=== PATIENT | male | born 1995 | race Two or more races ===

== ENCOUNTER 2021-01-06 22:35 | Observation (INO) ==
[2021-01-06] MEDS ORDERED: SODIUM CHLORIDE 0.9% 1000ML 1,000 ML IV STA (22:55)
[2021-01-06] MEDS ORDERED: ACETAMINOPHEN 1,000 MG/100 ML VIAL IV STA (22:56)
--- NOTE | 2021-01-06 23:01 | Emergency Department Note ---
History of Present Illness General Chief complaint: Abdominal Pain Stated complaint: ABDOMINAL PAIN Time Seen by Provider: 01/06/21 22:46 History of Present Illness Maximum Pain Intensity: 6 This 25-year-old presents to the ER complaining of abdominal pain Location: Right lower quadrant Quality: Painful Severity: Moderate Duration: Today Timing: Today Context: Patient was concerned and came in Modifying factors: better with rest; worse with palpation Patient denies chest pain, dyspnea, vomiting, diarrhea, urinary symptoms, testicular pain or penile pain. No prior abdominal surgeries. Home Medications Medication Instructions Recorded Confirmed Type ascorbic acid (vitamin C) 500 mg 500 mg PO DAILY 01/07/21 01/07/21 History tablet (Vitamin C) simethicone 80 mg chewable tablet 160 mg PO BID PRN 01/07/21 01/07/21 History Allergies Allergy/AdvReac Type Severity Reaction Status Date / Time DIPIRONE Allergy Anaphylaxis Uncoded 01/07/21 00:13 Past Med/Surg History Medical History No acute medical problems Surgical History S/P genital surgery Social History Smoking Status: Never smoker Preferred Language: Citizen Of [place] Feels Safe at Home: Yes Review of Systems A total of 10 systems reviewed and were otherwise negative Physical Exam Vital Signs Vital Signs - 24 hr 01/06/21 22:36 01/06/21 23:09 01/06/21 23:58 Temperature 36.9 C Temperature Source Temporal Artery Scan Pulse Rate 72 Pulse Rate [Right Finger] 84 Pulse Rhythm Regular Pulse Strength Normal Respiratory Rate 20 20 Respiratory Pattern Regular Blood Pressure 136/76 Blood Pressure [Right Arm] 144/85 H Blood Pressure Mean 96 Blood Pressure Mean [Right Arm] 104 Blood Pressure Position Sitting Pulse Oximetry 100 98 100 Oxygen Delivery Method Room Air Room Air Room Air Sepsis Recent Fever Within 48 Hours No Sepsis New/Unexplained Change in Mental Status No Sepsis Action Taken by Nursing No Action Required 01/07/21 01:36 Temperature Temperature Source Pulse Rate Pulse Rate [Right Finger] 78 Pulse Rhythm Pulse Strength Respiratory Rate 20 Respiratory Pattern Blood Pressure Blood Pressure [Right Arm] 136/85 Blood Pressure Mean Blood Pressure Mean [Right Arm] 102 Blood Pressure Position Pulse Oximetry 98 Oxygen Delivery Method Sepsis Recent Fever Within 48 Hours Sepsis New/Unexplained Change in Mental Status Sepsis Action Taken by Nursing VITALS: Vitals are noted on the nurse's note and reviewed by myself. Vital signs stable. GENERAL: Pleasant gentleman, in no acute distress, nondiaphoretic, well- developed well-nourished. SKIN: Capillary reflex less than 2 seconds. HEENT: Normocephalic. PERRLA. EOMI. Nares patent. Mucous membranes moist. Neck is supple without nuchal rigidity. HEART: Regular rate and rhythm without murmurs gallops or rubs. LUNGS: Clear to auscultation bilaterally without wheezes, rales or rhonchi. No retractions or accessory muscle use. ABDOMEN: Positive bowel sounds x 4. Normal tympanic percussion. Soft, tender to palpation right lower quadrant, without masses or organomegaly. Saucedo sign negative. No guarding or rebound tenderness. No CVA tenderness MUSCULOSKELETAL: No gross musculoskeletal defects. NEURO: Patient was alert and oriented to person place and time. No focal neurological deficits. Course Administered Medications Discontinued Medications Sodium Chloride (Nss 1000ml) 1,000 mls @ 999 mls/hr IV .Q1H1M STA Stop: 01/06/21 23:55 Last Infusion: 01/07/21 00:10 Dose: 0 mls/hr Documented by: [id number] Admin: 01/06/21 23:10 Dose: 999 mls/hr Documented by: [id number] Acetaminophen (Ofirmev) 1,000 mg in 100 mls @ 400 mls/hr IV NOW STA Stop: 01/06/21 23:10 Last Infusion: 01/06/21 23:28 Dose: 0 mls/hr Documented by: [id number] Admin: 01/06/21 23:10 Dose: 400 mls/hr Documented by: [id number] Cefoxitin Sodium (Mefoxin) 2,000 mg in 60 mls @ 100 mls/hr IV NOW STA Stop: 01/07/21 01:22 Last Infusion: 01/07/21 01:32 Dose: 0 mls/hr Documented by: [id number] Admin: 01/07/21 00:56 Dose: 100 mls/hr Documented by: [id number] Ioversol (Optiray 320 100ml) 100 ml IV ONCE ONE Stop: 01/07/21 00:12 Last Admin: 01/07/21 00:11 Dose: 94 ml Documented by: [id number] Morphine Sulfate (Morphine Sulfate 4 Mg/Ml 1 Ml Carp\Vial) 4 mg IV NOW STA Stop: 01/06/21 23:12 Last Admin: 01/06/21 23:14 Dose: 4 mg Documented by: [id number] Morphine Sulfate (Morphine Sulfate 4 Mg/Ml 1 Ml Carp\Vial) 4 mg IV NOW STA Stop: 01/07/21 00:28 Last Admin: 01/07/21 00:32 Dose: 4 mg Documented by: [id number] Medical Decision Making Medical Records Attestation: I reviewed the patient's medical records. Home Medications Current Medication List: was personally reviewed by me Laboratory Data Attestation: I reviewed the patient's lab results. Result diagrams: 01/06/21 23:08 01/06/21 23:08 Lab Results 01/06/21 01/06/21 01/07/21 Range/Units 23:08 23:08 00:55 WBC 11.51 H (4.8-10.8) K/uL RBC 5.23 (4.7-6.1) M/uL Hgb 14.9 (14.0-18.0) g/dL Hct 44.8 (42-52) % MCV 85.7 (80-100) fL MCH 28.5 (25-34) pg MCHC 33.3 (32-36) g/dL RDW Std Deviation 45.2 (36.4-46.3) fL RDW Coeff of Ryder 14.6 H (11.5-14.5) % Plt Count 170 (130-400) K/uL MPV 12.6 H (7.4-10.4) fL Immature Gran % (Auto) 0.3 % Neut % (Auto) 70.3 % Lymph % (Auto) 20.2 % [place] % (Auto) 7.3 % Eos % (Auto) 1.7 % Baso % (Auto) 0.2 % Neut # (Auto) 8.10 H (1.4-6.5) K/uL Lymph # (Auto) 2.32 (1.2-3.4) K/uL [place] # (Auto) 0.84 H (0.11-0.59) K/uL Eos # (Auto) 0.20 (0-0.5) K/uL Baso # (Auto) 0.02 (0-0.2) K/uL Immature Gran # (Auto) 0.03 H (0.00-0.02) K/uL Sodium 136 (136-145) mmol/L Potassium 3.3 L (3.5-5.1) mmol/L Chloride 103 (98-107) mmol/L Carbon Dioxide 26 (21-32) mmol/L Anion Gap 8.0 (3-11) BUN 17 (7-18) mg/dl Creatinine 0.96 (0.6-1.4) mg/dl Est Cr Clr Drug Dosing 117.3 ml/min Est GFR ( Amer) 126.8 ml/min Est GFR (Non-Af Amer) 109.4 ml/min BUN/Creatinine Ratio 18.0 (10-20) Glucose 124 H (70-99) mg/dl Calcium 9.3 (8.5-10.1) mg/dl Total Bilirubin 0.3 (0.2-1) mg/dl AST 24 (15-37) U/L ALT 22 (12-78) U/L Alkaline Phosphatase 66 (45-117) U/L Total Protein 8.1 (6.4-8.2) gm/dl Albumin 4.1 (3.4-5.0) gm/dl Globulin 4.0 (2.5-4.0) gm/dl Albumin/Globulin Ratio 1.0 (0.9-2) COVID-19 Eval Order Covid19 at [facility] Imaging Data Attestation: I personally reviewed and interpreted this imaging study as follows: MDM Narrative Prior records/ancillary studies reviewed. Triage Nursing notes reviewed. Additional history obtained from nursing. The patient's history was concerning for abdominal pain. Differential diagnosis: Etiologies such as appendicitis, diverticulitis, PUD, biliary pathology, UTI, pancreatitis, obstruction, mesenteric ischemia, aortic pathology, infections, inflammatory bowel disease, renal colic, as well as others were entertained. Physical examination findings: As above. ER treatment provided: An order was placed for continuous cardiac monitoring. The monitor shows a rate of 60-100 with a sinus rhythm. IV fluids, Tylenol, morphine, mefoxin On reassessment the patient felt better. Diagnostics interpreted by me: The labs revealed mild leukocytosis Imaging studies: CT ABDOMEN & PELVIS With Contrast: No previous studyfor comparison. Liver spleen and pancreas and gallbladder appear normal. There is an appendicolith in the proximal appendix in the distal appendix is mildlydistended measuring 15 mm. There is no appendiceal wall thickening or keron surrounding inflammatorychange. There is a solitaryleft kidneywithout hydronephrosis renal mass or stone. Bladder and prostate appear normal. Vascular structures appear normal. Impression: Earlyor mild appendicitis Radiologist: Garcia Arora MD Consultation: A consultation was placed with the GS, Dr Jaramillo. The case was discussed and diagnostics were reviewed. The patient was evaluated in the ER for further treatment. Exam and history seem consistent with acute appendicitis. Patient last ate at 6 PM. Surgery was consulted. He will be evaluated by surgery. Patient was placed on antibiotics. He was n.p.o. By the evaluation outlined above emergent etiologies such as diverticulitis, PUD, biliary pathology, UTI, pancreatitis, obstruction, mesenteric ischemia, aortic pathology, inflammatory bowel disease, renal colic, as well as others were deemed relatively unlikely. The pt informed about the findings as listed above. All questions were answered and pleased with the treatment. The chart was completed utilizing [employer] Speech voice recognition software. Grammatical errors, random word insertions, pronoun errors, and incomplete sentences are an occassional consequence of this system due to software limitations, ambient noise, and hardware issues. Any formal questions or concerns about the content, text, or information contained within the body of this dictation should be directly addressed to the physician assistant product manager for clarification. Impression & Plan Acute appendicitis Discharge Plan Visit Data Chief Complaint: Abdominal Pain Stated Complaint: ABDOMINAL PAIN ED Provider: Rashaad Griffin ED Midlevel Provider: Ngozi Jones Discharge Problem: Acute appendicitis Patient Disposition: Being Evaluated by Surgeon Condition: Good Forms Stand Alone Forms: [employer] Prescriptions Prescriptions: No Action ascorbic acid (vitamin C) [Vitamin C] 500 mg Tablet 500 mg PO DAILY RF: 0 simethicone [Gas-X] 80 mg Tablet,Chewable 160 mg PO BID PRN (Reason: gas /bloating) RF: 0 Referrals Referrals: PCP,NO [Physician] - Discharge Problem: Acute appendicitis Qualifiers: Acute appendicitis type: with localized peritonitis Appendicitis gangrene presence: unspecified whether gangrene present Appendicitis perforation presence: without perforation Appendicitis abscess presence: without abscess Qualified Code(s): K35.30 - Acute appendicitis with localized peritonitis, without perforation or gangrene
[2021-01-06] MEDS ORDERED: MoRPHine SULFATE 4 MG/ML 1 ML CARP\\VIAL IV STA (23:11)
[2021-01-06 23:18] LABS: Basophils # (auto) 0.02 K/uL (0-0.2); Basophils % (auto) 0.2 %; Eosinophils % (auto) 1.7 %; Hematocrit (blood only) 44.8 % (42-52); Hemoglobin 14.9 g/dL (14.0-18.0); Immature Granulocytes # (auto) 0.03 K/uL (0.00-0.02); Immature Granulocytes % (auto) 0.3 %; Lymphocytes # (auto) 2.32 K/uL (1.2-3.4); Lymphocytes % (auto) 20.2 %; Mean Corpuscular Hemoglobin 28.5 pg (25-34); Mean Corpuscular Hgb Conc 33.3 g/dL (32-36); Mean Corpuscular Volume 85.7 fL (80-100); Mean Platelet Volume 12.6 fL (7.4-10.4); Monocytes # (auto) 0.84 K/uL (0.11-0.59); Monocytes % (auto) 7.3 %; Neutrophils % (auto) 70.3 %; Platelet Count 170 K/uL (130-400); RDW Coefficient of Variation 14.6 % (11.5-14.5); RDW Standard Deviation 45.2 fL (36.4-46.3); Red Blood Count 5.23 M/uL (4.7-6.1); White Blood Count 11.51 K/uL (4.8-10.8)
[2021-01-06 23:39] LABS: Albumin Level 4.1 gm/dl (3.4-5.0); Calcium 9.3 mg/dl (8.5-10.1); Creatinine Clr Calc Pharmacy 117.3 ml/min; Est GFR (African American) 126.8 ml/min; Est GFR (Non-African American) 109.4 ml/min; Potassium 3.3 mmol/L (3.5-5.1)
[2021-01-06 23:42] LABS: Bilirubin,Total 0.3 mg/dl (0.2-1); Total Protein 8.1 gm/dl (6.4-8.2)
[2021-01-07] MEDS ORDERED: OPTIRAY 320 100ml IV ONE (00:11)
[2021-01-07] MEDS ORDERED: MoRPHine SULFATE 4 MG/ML 1 ML CARP\\VIAL IV STA (00:27)
[2021-01-07] MEDS ORDERED: cefOXitin 2,000 MG/60 ML BAG IV STA (00:47)
--- NOTE | 2021-01-07 01:52 | Surgery Consultation ---
Date of Consultation January 07, 2021 Assessment & Plan (1) Acute appendicitis: pt is a 25 year-old male who presents to Er with acute abdominal pain, IMP: acute abdominal pain, acute appendicitis, plan, I recommend to do laparoscopic appendectomy, possible open, D/W benefits, risks and alternatives of the surgery, the risks- infection, bleeding, abscess, remain fecalith, may need more procedure, injury other organs, negative for appendicitis, but still need to do appendectomy, pt understood, he agrees with the surgery, I answered all questions, pre-op antibiotic, History of Present Illness Reason for Consultation: acute appendicitis Requesting Physician: yissel maurice PA History of Present Illness CC: acute abdominal pain HPI: pt is a 25 year-old male who presents to ER with 7 hours acute RLQ pain with nausea and vomiting, the pain is 6/10, sharp pain, the pain is getting worse last 2 hours, pt denies diarrhea, no fever,otherwise pt is healthy, pt had Ct scan at Er, diagnosis- early appendicitis, Allergies Allergy/AdvReac Type Severity Reaction Status Date / Time DIPIRONE Allergy Anaphylaxis Uncoded 01/07/21 00:13 Home Medications Medication Instructions Recorded Confirmed Type ascorbic acid (vitamin C) 500 mg 500 mg PO DAILY 01/07/21 01/07/21 History tablet (Vitamin C) simethicone 80 mg chewable tablet 160 mg PO BID PRN 01/07/21 01/07/21 History Patient History Medical History No acute medical problems Surgical History S/P genital surgery Social History Smoking Status: Never smoker Preferred Language: Maltese Feels Safe at Home: Yes Review of Systems Constitutional: as per Subjective / HPI Eyes: as per Subjective / HPI Respiratory: as per Subjective / HPI Cardiovascular: as per Subjective / HPI Gastrointestinal: as per Subjective / HPI Genitourinary: + as per Subjective / HPI Neurologic: as per Subjective / HPI Psychiatric: as per Subjective / HPI Endocrine: as per Subjective / HPI Hematologic / Lymphatic: as per Subjective / HPI Physical Exam Constitutional: WD/WN, vitals as above Eyes: PERRL, conjunctivae normal, anicteric sclerae Neck: trachea midline, no thyromegaly Respiratory: normal respiratory effort, lungs clear to auscultation Cardiovascular: RRR, no murmur, no edema Gastrointestinal (Abdomen): soft, tenderness at RLQ, no rebound pain, no distend, BS +, Musculoskeletal: no cyanosis or clubbing, extremities motor strength 5/5 Neurologic: patellar DTR's 2+ bilat, sensation intact Psychiatric: A+Ox3, euthymic affect Results & [facility] ([facility]) Vital Signs (Past 12 Hours) Vital Signs Temp Pulse Pulse Resp BP BP Pulse Ox 01/07/21 01:36 78 20 136/85 98 01/06/21 23:58 84 20 144/85 H 100 01/06/21 23:09 98 01/06/21 22:36 36.9 C 72 20 136/76 100 Laboratory Results Abnormal lab results 01/06/21 01/06/21 Range/Units 23:08 23:08 WBC 11.51 H (4.8-10.8) K/uL RDW Coeff of Ryder 14.6 H (11.5-14.5) % MPV 12.6 H (7.4-10.4) fL Neut # (Auto) 8.10 H (1.4-6.5) K/uL [place] # (Auto) 0.84 H (0.11-0.59) K/uL Immature Gran # (Auto) 0.03 H (0.00-0.02) K/uL Potassium 3.3 L (3.5-5.1) mmol/L Glucose 124 H (70-99) mg/dl Diagnostic Findings CT scan- early appendicitis, with fecalith, enlarge appendix 15mm, small hiatal hernia, umbilical hernia, inguinal hernia,
--- NOTE | 2021-01-07 01:59 | History & Physical Bridge Note ---
Date of Service January 07, 2021 History & Physical Bridge Note I have examined the patient, reviewed the History & Physical and in the interval since the performance of the History & Physical I have noted the following changes of clinical significance: no changes noted
[2021-01-07] MEDS ORDERED: BUPIVACAINE 0.5 % 5 MG/1 ML MPF 30ML VIAL ONE (02:07)
[2021-01-07] MEDS ORDERED: LIDOCAINE 1% LOCAL 20 ML VIAL ONE (02:07)
[2021-01-07] MEDS ORDERED: BACITRACIN OINT 15 GM TUBE ONE (02:07)
[2021-01-07] MEDS ORDERED: ONDANSETRON INJ 2 MG/ML 2 ML VIAL IV PRN ×2 (02:23→03:38)
[2021-01-07] MEDS ORDERED: MEPERIDINE HCL 25 MG/ML CARP/VIAL IV PRN (02:23)
[2021-01-07] MEDS ORDERED: ePHEDrine sulfate 50 MG/ML AMP IV PRN (02:23)
[2021-01-07] MEDS ORDERED: PHENYLEPHRINE 100MCG/ML 5ML SYR IV PRN (02:23)
[2021-01-07] MEDS ORDERED: ATROPINE SULFATE 0.1 MG/ML 10ML SYR IV PRN (02:23)
[2021-01-07] MEDS ORDERED: LABETALOL HCL IV 5 MG/ML 20ML IV PRN (02:23)
[2021-01-07] MEDS ORDERED: HYDROmorphone INJ 1 MG/ML SYRINGE IV PRN (02:23)
[2021-01-07] MEDS ORDERED: fentaNYL citrate 100 MCG/2 ML VIAL IV PRN (02:23)
--- NOTE | 2021-01-07 02:25 | Anesthesiology Consultation ---
Date of Service January 07, 2021 Assessment & Plan (1) Encounter for pre-operative examination: Chart Review Chart Review: Acceptable Risk for Surgery and Patient NOT seen in Pre Admission Testing Consults Requested none History Surgery Operation Date: 01/07/21 02:30 Proposed Procedures p Laparoscopic Appendectomy - Vazquez Jaramillo MD Height/Weight Height: 5 ft 6 in Weight: 80.5 kg Allergies Allergy/AdvReac Type Severity Reaction Status Date / Time DIPIRONE Allergy Anaphylaxis Uncoded 01/07/21 00:13 Medications Home Medications Medication Instructions Recorded Confirmed Last Taken ascorbic acid (vitamin C) 500 mg 500 mg PO DAILY 01/07/21 01/07/21 Unknown tablet (Vitamin C) simethicone 80 mg chewable tablet 160 mg PO BID PRN 01/07/21 01/07/21 Unknown NPO Date Last Intake of Fluids: 01/06/21 Time Last Intake of Fluids: 18:00 Date Last Intake of Solids: 01/06/21 Time Last Intake of Solids: 18:00 Past Medical History Medical History No acute medical problems Past Surgical History Surgical History S/P genital surgery Social History Smoking Status: Never smoker Physical Exam Vital Signs Last Vital Signs Temp 36.9 C 01/06/21 22:36 Pulse 78 01/07/21 01:36 Resp 20 01/07/21 01:36 BP 136/85 01/07/21 01:36 Pulse Ox 98 01/07/21 01:36 Testing Laboratory Results 01/06/21 23:08 01/06/21 23:08
[2021-01-07] MEDS ORDERED: fentaNYL citrate 100 MCG/2 ML VIAL ONE (02:35)
[2021-01-07] MEDS ORDERED: MIDAZOLAM HCL 1 MG/ML 2ML VIAL ONE (02:36)
[2021-01-07] MEDS ORDERED: ONDANSETRON INJ 2 MG/ML 2 ML VIAL ONE (03:05)
[2021-01-07] MEDS ORDERED: DEXAMETHASONE SOD INJ 4 MG/ML VIAL ONE (03:05)
[2021-01-07] MEDS ORDERED: ROCURONIUM BROMIDE 10 MG/ML 5 ML VIAL IV ONE (03:05)
[2021-01-07] MEDS ORDERED: PROPOFOL IV EMULSION 10 MG/ML 20 ML VIAL IV ONE (03:06)
[2021-01-07] MEDS ORDERED: GLYCOPYRROLATE 0.2 MG/ML VIAL ONE (03:06)
[2021-01-07] MEDS ORDERED: SUCCINYLCHOLINE 100MG/5ML SYR IV ONE (03:06)
[2021-01-07] MEDS ORDERED: LIDOCAINE 2% 2 ML VIAL/AMP(20MG/ML) INFIL ONE (03:06)
[2021-01-07] MEDS ORDERED: NEOSTIGMINE METHYLSULFATE 1 MG/ML 10ML VIAL ONE (03:06)
[2021-01-07] MEDS ORDERED: KETOROLAC 30 MG/ML VIAL ONE (03:22)
--- NOTE | 2021-01-07 03:34 | Post Operative Brief Note ---
Immediate Post Op Note v1 Date of Surgery January 07, 2021 Pre & Post Diagnosis Operation Date: 01/07/21 02:30 Pre-Op Diagnosis: Acute appendicitis Post-Op Diagnosis: Acute appendicitis I identified the patient and participated in the time-out.: Yes Procedure Operation Date: 01/07/21 02:30 Actual Procedures p Laparoscopic Appendectomy(Not Applicable) - Vazquez Jaramillo MD Surgeon Vazquez Jaramillo MD Cemetery Manager liquified natural gas technician Estimated Blood Loss 10 Findings Consistent with Post-Op Diagnosis acute appendicitis Fluids 1000ml Specimens appendix Anesthesia Type General Complications none Disposition Accompanied Patient To Recovery: Yes
--- NOTE | 2021-01-07 04:45 | Anesthesiology Progress Note ---
Date of Service January 07, 2021 Anesthesia Post Procedure Vital Signs Vital Signs: Temp Pulse Pulse Resp BP BP Pulse Ox 01/07/21 04:20 36.6 C 64 16 116/81 01/07/21 03:50 36.3 C L 79 18 115/70 100 01/07/21 01:36 78 20 136/85 98 01/06/21 23:58 84 20 144/85 H 100 01/06/21 23:09 98 01/06/21 22:36 36.9 C 72 20 136/76 100 Transfer of Care Handoff Completed per policy Notes Mental Status: alert / awake / arousable Patient Amnestic to Procedure: Yes Nausea / Vomiting: adequately controlled Pain: adequately controlled Airway Patency, RR, SpO2: stable & adequate BP & HR: stable & adequate Hydration State: stable & adequate Anesthetic Complications: no major complications apparent and Pt Satisfied with anesthetic care
[2021-01-07] MEDS ORDERED: oxyCODONE/ACETAMINOPHEN 5mg/325mg TAB PO PRN (04:48)
[2021-01-07] MEDS ORDERED: LACTATED RINGER'S 1,000 ML IV SCH (04:48)
[2021-01-07] MEDS ORDERED: SIMETHICONE 80 MG CHEW PO PRN (04:48)
[2021-01-07] MEDS ORDERED: HYDROmorphone INJ 0.5 MG/0.5 ML SYR IV PRN (04:48)
--- NOTE | 2021-01-07 05:01 | Operative Report (OR) ---
DATE OF PROCEDURE: 01/07/2021. PREOPERATIVE DIAGNOSIS: Acute appendicitis. POSTOPERATIVE DIAGNOSIS: Acute appendicitis. OPERATION: Laparoscopic appendectomy. SURGEON: Vazquez Jaramillo MD ANESTHESIA: General. ESTIMATED BLOOD LOSS: About 10 mL. FINDINGS: Acute appendicitis. COMPLICATIONS: None. INDICATIONS FOR THE PROCEDURE: This is a 25-year-old gentleman who presented to ED with acute abdominal pain. The patient had a CT scan diagnosis of acute appendicitis. I recommended to do laparoscopic appendectomy, possible open. I did talk to the patient about the benefits, risks, alternate procedures. I indicated the risks may include, but not limited to, such as bleeding, infection, abscess, injury to other organs, remaining fecalith, may need more procedure, or negative diagnosis, but still need appendectomy. The patient understands and he signed informed consent and I answered all questions. DETAILS OF PROCEDURE: After we identified the patient and verified the procedure, we brought in the patient to the OR, put the patient in the supine position on the OR table. The patient received SCDs on bilateral legs to prevent DVT. Also, the patient received 2 grams cefoxitin IV for prophylactic antibiotic. The patient received general anesthesia without difficulty. The abdomen was prepped and draped in routine sterile fashion. After timeout, I injected the local anesthesia by using 1% lidocaine mixed with 0.5% Marcaine just above the umbilicus. Then I made a small incision just above umbilicus, opened fascia, opened peritoneum. Under direct vision, I put a Patrick trocar in. Once we put the Patrick trocar into the abdominal cavity, connected to CO2 to create pneumoperitoneum, flow rate at 6 liters per minute, pressure not more than 14 mmHg. Once we got a nice pneumoperitoneum, we put the camera in, looked around the abdomen. No more finding on the small bowel or large bowel; however, the appendix was significantly enlarged about 1.5 cm diameter with inflammation, confirmed diagnosis of acute appendicitis. Once we confirmed the diagnosis of acute appendicitis, we put another two 5 mm trocars on the left lower quadrant area. So we used the Harmonic to take down the appendiceal, rechecked, no active bleeding. Then we used a 45 mm Endo-RANDOLPH stapler for transection on the base of appendix, rechecked the staple line intact, and no leak, no active bleeding. Then we removed the appendix through the catch bag. Then, we reinserted the Patrick trocar in, connected to CO2 to create pneumoperitoneum, again looked around the abdomen, no active bleeding, no leak from staple line. Then, we removed all trocars under direct vision. No active bleeding from the trocar site. Pneumoperitoneum was released. Then I closed the umbilical fascial layer incision by using 0 Vicryl [id number] x2, closed subcutaneous layer by using 2-0 Vicryl interruptedly, closed skin by using 4-0 Vicryl continuous running, closed another two 5 mm trocar sites skin only by using 4-0 Vicryl. Then, we put the dressing on. The patient tolerated the procedure well. All the instrument, needle, and sponge counts were correct x2 at the end of the case. The patient was transported to the recovery room in stable condition. The specimen was sent to pathology. After the procedure, I did talk to the patient about the OR finding and the procedure we did, the patient understands. Job ID: [id number] [facility]
[2021-01-07 06:14] LABS: Basophils # (auto) 0.01 K/uL (0-0.2); Basophils % (auto) 0.1 %; Hematocrit (blood only) 43.2 % (42-52); Hemoglobin 14.2 g/dL (14.0-18.0); Immature Granulocytes # (auto) 0.03 K/uL (0.00-0.02); Immature Granulocytes % (auto) 0.2 %; Lymphocytes # (auto) 0.77 K/uL (1.2-3.4); Lymphocytes % (auto) 6.1 %; Mean Corpuscular Hgb Conc 32.9 g/dL (32-36); Mean Platelet Volume 12.3 fL (7.4-10.4); Monocytes # (auto) 0.09 K/uL (0.11-0.59); Monocytes % (auto) 0.7 %; Neutrophils # (auto) 11.66 K/uL (1.4-6.5); Neutrophils % (auto) 92.9 %; Platelet Count 151 K/uL (130-400); RDW Coefficient of Variation 14.6 % (11.5-14.5); RDW Standard Deviation 45.8 fL (36.4-46.3); Red Blood Count 5.08 M/uL (4.7-6.1); White Blood Count 12.56 K/uL (4.8-10.8)
[2021-01-07] MEDS ORDERED: ACETAMINOPHEN 325 MG TAB PO PRN (07:28)
--- NOTE | 2021-01-07 08:14 | Discharge Summary ---
Date of Service January 07, 2021 Admission HPI Per Admitting Provider pt is a 25 year-old male who presents to ER with 7 hours acute RLQ pain with nausea and vomiting, the pain is 6/10, sharp pain, the pain is getting worse last 2 hours, pt denies diarrhea, no fever,otherwise pt is healthy, pt had Ct scan at Er, diagnosis- early appendicitis, Principal Diagnosis Acute appendicitis Discharge Exam Constitutional WD/WN, vitals as above no acute distress and not ill appearing Respiratory normal respiratory effort; no respiratory distress, no labored breathing and no retractions Gastrointestinal (Abdomen) Inspection/Auscultation: abdomen normal to inspection; abdomen not distended Percussion/Palpation: + abdomen tender (at incision sites, mild) and abdomen soft; no guarding and abdomen not rigid Skin no rashes, warm and dry + incision (covered with dry intact dressings) Psychiatric A+Ox3, euthymic affect Discharge Data Allergies Allergy/AdvReac Type Severity Reaction Status Date / Time DIPIRONE Allergy Anaphylaxis Uncoded 01/07/21 00:13 Consultations 01/07/21 00:48 ED Decision to Admit Stat Procedures Performed Operation Date: 01/07/21 02:30 Actual Procedures p Laparoscopic Appendectomy(Not Applicable) - Vazquez Jaramillo MD Ordered Studies 01/06/21 22:55 CT abd pelvis IV con only Urgent Hospital Course (1) Acute appendicitis: Patient was taken to operating room for laparoscopic appendectomy possible open. Patient found to have acute appendicitis without abscess or perforation. Patient tolerated procedure well without difficulty. Transferred to recovery and then to medical/surgical floor for postop care. Diet advanced to clears and as tolerated. Activity as tolerated. PO Percocet and Tylenol as needed for pain. POD # 0 , vitals stable, afebrile, postop pain minimal at incision sites, no nausea or vomiting. Urinating without difficulty. Clear liquid tray ordered for breakfast. Advised to ambulate hallway and if does well with diet and ambulating could be discharged after lunch. Patient did well and was discharged on POD # 0 after lunch. Total Time Total Time Spent Total Time Spent (In Minutes): 20 Total Time Includes: Examination of the Patient, Discharge Planning and Medication Reconciliation Discharge Plan Discharge Items Patient Disposition: Home - Self-Care Reason For Visit: ABDOMINAL PAIN Discharge Diagnosis: acute appendicitis Condition on Discharge: Good Activity: Per Instructions section Non-emergency contact: Surgeon Call non-emergency contact if: you have any medication questions, your pain is not controlled, your pain is worsening, your pain is concerning for you, you have a fever, your temperature is above 101, your wound has increased redness, your wound has increased drainage and your wound pain has increased Follow-up/Referrals: PCP,NO [Physician] - Diet: Regular Addtl Attending Provider Instructions: Post-Surgical ~Discharge Instructions Activity Recommendations: - lifting limitation: (25 pounds for 4 weeks), - exercise/sex/sports limit: (nonstrenuous for 2 weeks), - driving or machine use limit: (none for 1 week or until no longer taking narcotic pain medication), - Shower/bathe limit: (august shower beginning Wednesday) Diet: - Resume previous diet SPECIAL CARE INSTRUCTIONS: - May shower on Wednesday. Sponge bath and wash hair in meantime. On Wednesday, remove outer dressings and shower. Let water run over area and pat dry. - Leave steri strips on for one week and then remove. They may fall off on their own that is okay. - Call the surgeon's office with any questions or concerns - - (ex. temperature higher than 101 degrees F, excessive bleeding or pain). MEDICATIONS: - Resume previous medications unless instructed otherwise by your surgeon. - May take extra strength Tylenol as needed for mild pain - Percocet 1 every 4 hours, as needed for moderate to severe pain - Recommend stool softener daily (Colace) while taking narcotic pain medication to prevent constipation. FOLLOW UP VISIT: - If not already scheduled, please call the office to schedule a two week follow-up appointment. Office number Pending Studies at Discharge: Yes Stand-Alone Forms: My [employer], Work/School Release, Smoking Cessation Medications and DC Order Prescriptions: Continued ascorbic acid (vitamin C) [Vitamin C] 500 mg Tablet 500 mg PO DAILY RF: 0 simethicone 80 mg Tablet,Chewable 160 mg PO BID PRN (Reason: gas /bloating) RF: 0 Discharge Orders: Discharge Order (Routine); Ordered 01/07/21 Ordered By: Kisha Auguste/Other Patient Handouts: DVT Post Op Prevention Admission Data Admit Date/Time: 01/07/21 03:39 Attending Provider: Vazquez Jaramillo Admit Provider: Vazquez Jaramillo Primary Care Provider: [facility] Other Providers: Vazquez Jaramillo Other Interventions: Discharge Summary Assessment (RN) Last Done: 01/07/21 09:39
--- NOTE | 2021-01-07 08:48 | CT Scan Report ---
CT abd pelvis IV con only CLINICAL HISTORY: rlq pain COMPARISON STUDY: None. TECHNIQUE: A dose lowering technique was utilized adhering to the principles of ALARA. CT DOSE: 886.41 mGy.cm FINDINGS: Lower chest: Limited evaluation of lung bases shows no evidence of acute abnormalities.. Liver: The contrast-enhanced liver is normal in size, contour, and attenuation. There is no intrahepa tic biliary ductal dilatation. The hepatic veins and portal veins are patent. Gallbladder: Unremarkable. Spleen: Normal in size and attenuation. Pancreas: Unremarkable. Adrenal glands: Unremarkable. Kidneys: Normal CT appearance of the left kidney without evidence of hydronephrosis or focal lesions. Right kidney is not seen. Pelvic viscera: The bladder, and pelvic viscera are unremarkable. Bowel: Bowel loops are nondilated. Appendicolith is seen within proximal aspect of the appendix. Dist al portion of appendix is dilated and measures up to 1.1 cm in diameter without definite surrounding inflammatory changes. Peritoneum: There is no intraperitoneal free air or abdominal ascites. Vasculature: The abdominal aorta is normal in course and caliber. Adenopathy: None. Skeletal structures: No destructive osseous lesions are seen. IMPRESSION: 1. Appendicolith within proximal aspect of appendix and mild diffuse dilatation of the appendix with out significant surrounding inflammatory changes might represent developing appendicitis. 2. Normal appearance of the left kidney. Right kidney is not visualized. Please correlate above-ment ioned findings with prior cyst surgical history. 3. The rest of findings as above. ACT 112: Negative or not required by law. The above report was generated using voice recognition software. It may contain grammatical, syntax o r spelling errors. Electronically signed by: Soo Fischer DO 01/07/2021 8:47 AM
[2021-01-07] MEDS ORDERED: ASCORBIC ACID 500 MG TAB PO SCH (09:00)
== END 2021-01-07 14:21 | disposition home or self-care (01) ==
LOC: ED 22:35 → 3W 01-07 02:07 → OR 01-07 02:07
DX: Z88.8 Allergy status to other drugs, medicaments and biological substances; K35.80 Unspecified acute appendicitis; Z20.828 Contact with and (suspected) exposure to other viral communicable diseases